=== PATIENT | female | born 1990 | race American Indian/Alaskan Native ===

== ENCOUNTER 2019-10-24 22:09 | Emergency (ER) | payer BC, OTHER ==
[2019-10-25] MEDS ORDERED: Sodium Chloride 0.9% 1,000 ML IV ONE (00:02)
[2019-10-25] MEDS ORDERED: cefTRIAXone 1 GM in Sodium Chloride 0.9% 50 ML IV ONE (00:02)
[2019-10-25] MEDS ORDERED: Dexamethasone 4 MG/ML SDV IVPUSH ONE (00:04)
[2019-10-25] MEDS ORDERED: Ketorolac 30 MG/ML SDV IVPUSH ONE (00:40)
[2019-10-25 00:52] LABS: ANION GAP 14.4; CHLORIDE,CL 106 mmol/L (101-111); SODIUM,NA 138 mmol/L (135-145)
--- NOTE | 2019-10-25 01:24 | EDM.PDOC ---
ED HPI GENERAL MEDICAL PROBLEM - General Chief Complaint: ENT Problem Stated Complaint: SORE THROAT Time Seen by Provider: 10/24/19 23:00 Source of Information: Reports: Patient History Limitations: Reports: No Limitations - History of Present Illness INITIAL COMMENTS - FREE TEXT/NARRATIVE: Sore throat x 2 days, headache fever, pain with swallowing. No ear pain. No nausea or vomiting. Nothing recent for pain. 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: Musculoskeletal History: Reports: None Psychiatric History: Reports: Depression Endocrine/Metabolic History: Reports: Hypothyroidism Oncologic (Cancer) History: Reports: Cervix - Infectious Disease History Infectious Disease History: Reports: None - Past Surgical History Female Surgical History: Reports: Section, Hysterectomy Musculoskeletal Surgical History: Reports: None Social & Family History - Family History Family Medical History: Noncontributory - Tobacco Use Smoking Status *Q: Never Smoker Second Hand Smoke Exposure: No - Caffeine Use Caffeine Use: Reports: None - Recreational Drug Use Recreational Drug Use: No - Living Situation & Occupation Living situation: Reports: Single, with Family Occupation: Unemployed ED ROS ENT - Review of Systems Review Of Systems: Comprehensive ROS is negative, except as noted in HPI. ED EXAM, ENT - Physical Exam Exam: See Below Exam Limited By: No Limitations General Appearance: Alert, Mild Distress Eye Exam: Bilateral Eye: EOMI Ears: Normal External Exam, Hearing Grossly Normal Nose: Normal Inspection Mouth/Throat: Throat Pain, Tonsillar Exudates (thick white patches), Tonsillar Swelling, Uvular Edema. No: Normal Lips (parched), Uvular Deviation Head: Atraumatic, Normocephalic Neck: Full Range of Motion, Lymphadenopathy (L), Lymphadenopathy (R) Respiratory/Chest: No Respiratory Distress, Lungs Clear, Normal Breath Sounds Cardiovascular: Normal Peripheral Pulses, Regular Rate, Rhythm, Tachycardia GI/Abdominal: Normal Bowel Sounds Extremities: Normal Inspection Neurological: Alert, Oriented, Normal Cognition Psychiatric: Normal Affect, Normal Mood Skin: Warm, Dry, Intact, No Rash, Pallor Course - Vital Signs Last Recorded V/S: Last Vital Signs Temp 98 F 10/25/19 02:16 Pulse 104 H 10/25/19 02:16 Resp 20 10/25/19 02:16 BP 125/80 10/25/19 02:16 Pulse Ox 98 10/25/19 02:16 - Orders/Labs/Meds Orders: Active Orders 24 hr Category Date Time Status STREP SCRN A RAPID W CULT CONF [RM] Stat Lab 10/24/19 23:04 Results Labs: Laboratory Tests 10/25/19 10/25/19 Range/Units 00:17 00:17 WBC 21.5 H (5.0-10.0) 10^3/uL RBC 4.33 (4.2-5.4) 10^6/uL Hgb 12.6 (12.0-16.0) g/dL Hct 37.9 (37.0-47.0) % MCV 87.5 (80-100) fL MCH 29.1 (27.0-34.0) pg MCHC 33.2 (33.0-35.0) g/dL Plt Count 408 D (150-450) 10^3/uL Neut % (Auto) 81.6 H (42.2-75.2) % Lymph % (Auto) 10.4 L (20.5-50.1) % [place] % (Auto) 7.8 (2-8) % Eos % (Auto) 0.1 L (1.0-3.0) % Baso % (Auto) 0.1 (0.0-1.0) % Sodium 138 (135-145) mmol/L Potassium 3.4 L (3.6-5.0) mmol/L Chloride 106 (101-111) mmol/L Carbon Dioxide 21.0 (21.0-31.0) mmol/L Anion Gap 14.4 BUN 8 (7-18) mg/dL Creatinine 0.6 (0.6-1.3) mg/dL Est Cr Clr Drug Dosing 118.39 mL/min Estimated GFR (MDRD) > 60 BUN/Creatinine Ratio 13.33 Glucose 109 H (74-105) mg/dL Calcium 9.0 (8.4-10.2) mg/dl Total Bilirubin 0.6 (0.2-1.0) mg/dL AST 15 (10-42) IU/L ALT 21 (10-60) IU/L Alkaline Phosphatase 53 (42-121) IU/L Total Protein 7.5 (6.7-8.2) g/dl Albumin 4.1 (3.2-5.5) g/dl Globulin 3.4 Albumin/Globulin Ratio 1.21 Meds: Medications Discontinued Medications Generic Name Dose Route Start Last Admin Trade Name Frechastity PRN Reason Stop Dose Admin Acetaminophen 650 mg 10/25/19 02:02 10/25/19 02:06 Tylenol PO 10/25/19 02:03 650 mg NOW ONE Administration Dexamethasone 4 mg 10/25/19 00:04 10/25/19 00:26 Dexamethasone IVPUSH 10/25/19 00:05 4 mg ONETIME ONE Administration Ceftriaxone Sodium 1 gm/ 50 mls @ 50 mls/hr 10/25/19 00:02 10/25/19 00:29 Sodium Chloride IV 10/25/19 01:01 50 mls/hr ONETIME ONE Administration Sodium Chloride 1,000 mls @ 999 mls/hr 10/25/19 00:02 10/25/19 02:07 Normal Saline IV 10/25/19 01:02 Infused .BOLUS ONE Infusion Ketorolac Tromethamine 30 mg 10/25/19 00:40 10/25/19 00:48 Toradol IVPUSH 10/25/19 00:41 30 mg ONETIME ONE Administration Departure - Departure Time of Disposition: 01:22 Disposition: Home, Self-Care 01 Condition: Good Clinical Impression: Strep pharyngitis, Dehydration, mild - Discharge Information *PRESCRIPTION DRUG MONITORING PROGRAM REVIEWED*: No *COPY OF PRESCRIPTION DRUG MONITORING REPORT IN PATIENT MAC: No Instructions: Strep Throat Referrals: PCP,None [Ordering Only Provider] - Forms: ED Department Discharge Additional Instructions: increase fluids, small amounts more frequently salt water gargles augmentin 875/125 twice daily for 10 days alternate tylenol 650mg and ibuprofen 600mg every 4 hours as needed for discomfort follow up if symptoms worsen - My Orders Last 24 Hours: My Active Orders 10/24/19 23:04 STREP SCRN A RAPID W CULT CONF [RM] Stat - Assessment/Plan Last 24 Hours: My Active Orders 10/24/19 23:04 STREP SCRN A RAPID W CULT CONF [RM] Stat
[2019-10-25] MEDS ORDERED: Acetaminophen 325 MG Tab PO ONE (02:02)
[2019-10-25 02:19] VITALS: BP 125/80; PULSE 104
== END 2019-10-25 02:00 | disposition home or self-care (01) ==
LOC: DL.ED 22:09
DX: E86.0 Dehydration (principal); J02.0 Streptococcal pharyngitis; I10 Essential (primary) hypertension; E03.9 Hypothyroidism, unspecified; Z79.899 Other long term (current) drug therapy
CPT/HCPCS: 36415; 80053; 85025; 87430; 96365; 96375; 99284; A9270; J0696; J1100; J1885; J7030; J7050

== ENCOUNTER 2020-12-21 12:40 | Emergency (ER) | payer BC, OTHER ==
[2020-12-21] MEDS ORDERED: Ondansetron 4 MG Tab.DIS PO ONE (12:58)
[2020-12-21 13:00] VITALS: BP 143/89; PULSE 90
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
[2020-12-21] MEDS ORDERED: Acetaminophen 325 MG Tab PO ONE (13:08)
[2020-12-21] MEDS ORDERED: Ibuprofen 800 MG Tab PO ONE (13:08)
== END 2020-12-21 13:48 | disposition home or self-care (01) ==
LOC: DL.ED 12:40
DX: S06.0X0A Concussion without loss of consciousness, initial encounter (principal); S00.83XA Contusion of other part of head, initial encounter; I10 Essential (primary) hypertension; E03.9 Hypothyroidism, unspecified; E66.9 Obesity, unspecified; Z68.38 Body mass index [BMI] 38.0-38.9, adult; Y04.0XXA Assault by unarmed brawl or fight, initial encounter
CPT/HCPCS: 99283; A9270

== ENCOUNTER 2020-12-24 12:11 | Emergency (ER) | payer BC, OTHER ==
[2020-12-24 12:57] VITALS: BP 130/88; PULSE 83
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
[2020-12-24 14:34] LABS: CORONAVIRUS COVID-19 NAA POSITIVE (NEGATIVE)
[2020-12-24 14:48] LABS: ANION GAP 16.8 mEq/L (7-13); CHLORIDE,CL 100 mmol/L (98-107); SODIUM,NA 139 mmol/L (136-145)
[2020-12-24] MEDS ORDERED: Ondansetron 4 MG Tab.DIS PO ONE (14:52)
[2020-12-24] MEDS ORDERED: Ibuprofen 400 MG Tab PO ONE (14:52)
== END 2020-12-24 15:15 | disposition home or self-care (01) ==
LOC: DL.ED 12:11
DX: U07.1 COVID-19 (principal); I10 Essential (primary) hypertension; E03.9 Hypothyroidism, unspecified; E66.9 Obesity, unspecified; Z68.37 Body mass index [BMI] 37.0-37.9, adult; Z79.899 Other long term (current) drug therapy
CPT/HCPCS: 0240U; 36415; 80053; 83735; 85025; 99284; A9270; 99283

== ENCOUNTER 2024-09-14 18:12 | Emergency (ER) | payer BC, OTHER ==
[2024-09-14 18:51] VITALS: BP 132/92; PULSE 83
[2024-09-14] MEDS: Ibuprofen 800 MG Tab PO ONE (18:53)
== END 2024-09-14 18:58 | disposition home or self-care (01) ==
LOC: DL.ED 18:12
DX: J01.00 Acute maxillary sinusitis, unspecified (principal); E78.00 Pure hypercholesterolemia, unspecified; I10 Essential (primary) hypertension; E03.9 Hypothyroidism, unspecified; E66.9 Obesity, unspecified; Z68.41 Body mass index [BMI] 40.0-44.9, adult; Z90.710 Acquired absence of both cervix and uterus
CPT/HCPCS: 99283; A9270